=== PATIENT | female | born 1940 | race African-American/Black ===

== ENCOUNTER 2019-05-02 08:59 | Emergency (ER) | payer OTHER ==
[~2019-05-02] VITALS: Ht 154.9 cm; Wt 57.6 kg
[2019-05-02] MEDS ORDERED: CLONAZEPAM2 M1 PO (09:16)
[2019-05-02] MEDS ORDERED: VASOTEC10 MG PO (09:16)
== END 2019-05-02 13:54 | disposition home or self-care (01) ==
LOC: ER 08:59
DX: R63.0 Anorexia (principal)

== ENCOUNTER 2022-09-28 07:43 | Outpatient (CLI) | payer OTHER ==
[~2022-09-28 07:43] MED LIST: CLONAZEPAM2 M1 PO; VASOTEC10 MG PO
== END 2022-09-28 07:51 | disposition home or self-care (01) ==
LOC: TOM 07:43
PROVIDERS: ATTEND Internal Medicine Hematology & Oncology
DX: K59.00 Constipation, unspecified (principal); R97.0 Elevated carcinoembryonic antigen [CEA]; Z80.0 Family history of malignant neoplasm of digestive organs

== ENCOUNTER 2023-12-03 10:57 | Emergency (ER) | payer OTHER ==
[~2023-12-03] VITALS: Ht 154.9 cm; Wt 53.5 kg
[~2023-12-03 10:57] MED LIST changes: +ARICEPT5 MG; +B12 ACTIVE1000 MCG PO; +CLONAZEPAM2 MG PO; +CRESTOR5 MG PO; +LIPITOR20 MG; +NABUMETONE500 MG PO; +ORPH100T PO; +OSEL75CA PO; +PERCOCET 5/3251 TAB PO; +SYNTHROID100 MCG PO; +TUSSI PRES-B L120 M1 PO; +VASOTEC10 MG NGT; +ZANTAC15 MG/ML PO; +[UNRECOGNIZED DRUG - OTHER]
[2023-12-03] MEDS ORDERED: KETOROLAC TROMETHAMINE 15 MG VIAL IM STA (13:07)
[2023-12-03] MEDS ORDERED: TRAMADOL HCL 50 MG TABLET PO STA (13:07)
== END 2023-12-03 17:58 | disposition home or self-care (01) ==
LOC: ER 10:57
DX: S62.102A Fracture of unspecified carpal bone, left wrist, initial encounter for closed fracture (principal); W19.XXXA Unspecified fall, initial encounter; Y93.89 Activity, other specified; Y92.098 Other place in other non-institutional residence as the place of occurrence of the external cause; Y99.8 Other external cause status; M25.532 Pain in left wrist; Z88.6 Allergy status to analgesic agent
CPT/HCPCS: 29125; 73100; 96372; 99283; J1885

== ENCOUNTER → 2023-12-04 11:32 | Outpatient (CLI) | payer OTHER ==
[2023-12-04 12:22] LABS: HEMATOCRIT 34.5 % (36.0-45.00); HEMOGLOBIN 11.2 g/dL (12.0-15.00); MEAN CORPUSCULAR HEMOGLOBIN 28.6 pg (27.00-32.0); MEAN CORPUSCULAR HGB CONC 32.5 g/dl (32.0-36.0); PLATELET COUNT 298 K/uL (150-450); RED BLOOD COUNT 3.92 M/uL (4.00-6.00); RED CELL DISTRIBUTION WIDTH 13.3 % (11.5-14.5)
[2023-12-04 12:32] LABS: URINE APPEARANCE Clear; URINE BILIRRUBIN Negative (NEGATIVE); URINE BLOOD Moderate; URINE COLOR Yellow; URINE GLUCOSE Negative (NEGATIVE); URINE KETONE Negative (NEGATIVE); URINE LEUKOCYTE Negative; URINE NITRATE Negative; URINE PROTEIN Negative (NEGATIVE); URINE UROBILINOGEN 0.2 E.U./dl
[2023-12-04 12:33] LABS: URINE BACTERIA 7.5 uL (0.0-1933); URINE EPITHELIAL CELLS 3.7 uL (0.0-38.8); URINE RBC 105.1 uL (0.0-20.8); URINE WBC 4.4 uL (0.0-23.2)
[2023-12-04 12:55] LABS: INR 1.02; PROTHROMBIN TIME 11.1 SECONDS (9.0-11.5)
[2023-12-04 13:13] LABS: ALBUMIN 3.7 gm/dL (3.4-5.0); BILIRUBIN TOTAL 0.93 mg/dL (0.3-1.2); CALCIUM 9.8 mg/dL (8.5-10.1); CREATININE SERUM 0.96 mg/dL (0.55-1.02); GFR 54.98; GLOBULINA 4.2 G/DL (2.4-3.5); POTASSIUM 4.4 mEq/L (3.5-5.1); TOTAL PROTEIN 7.9 gm/dL (6.4-8.2)
== END | disposition home or self-care (01) ==
LOC: LAB 11:32
PROVIDERS: ATTEND Orthopaedic Surgery
DX: D64.9 Anemia, unspecified (principal); E88.89 Other specified metabolic disorders; D68.8 Other specified coagulation defects; N39.0 Urinary tract infection, site not specified; Z22.322 Carrier or suspected carrier of Methicillin resistant Staphylococcus aureus; I10 Essential (primary) hypertension; Z76.89 Persons encountering health services in other specified circumstances; M25.531 Pain in right wrist; M25.532 Pain in left wrist

== ENCOUNTER → 2023-12-06 06:13 | Outpatient (CLI) | payer OTHER ==
[2023-12-06 07:05] LABS: INR 1.05; PARTIAL THROMBOPLASTIN TIME 32.2 SECONDS (22.0-34.0); PROTHROMBIN TIME 11.4 SECONDS (9.0-11.5)
[2023-12-06 07:38] LABS: COL EPI 87 SECONDS (82-175)
== END | disposition home or self-care (01) ==
LOC: LAB 06:13
PROVIDERS: ATTEND Orthopaedic Surgery
DX: D68.8 Other specified coagulation defects (principal)

== ENCOUNTER 2024-01-10 08:43 | Outpatient (CLI) | payer OTHER | END 2024-01-10 08:47 | disposition home or self-care (01) | LOC: RAD 08:43 | PROVIDERS: ATTEND Orthopaedic Surgery | DX: S52.572D Other intraarticular fracture of lower end of left radius, subsequent encounter for closed fracture with routine healing (principal); M25.532 Pain in left wrist ==

== ENCOUNTER 2024-04-30 07:05 | Outpatient (CLI) | payer OTHER | END 2024-04-30 07:06 | disposition home or self-care (01) | LOC: RAD 07:05 | PROVIDERS: ATTEND Orthopaedic Surgery | DX: S52.572D Other intraarticular fracture of lower end of left radius, subsequent encounter for closed fracture with routine healing (principal); X58.XXXD Exposure to other specified factors, subsequent encounter ==

== ENCOUNTER 2024-08-04 06:45 | Outpatient (CLI) | payer OTHER ==
[2024-08-04 07:45] LABS: BASO % 0.8 % (0.1-1.2); EOS # 0.16 (0.04-0.54); EOS % 2.5 % (0.7-7.0); HEMATOCRIT 38.7 % (34.1-44.9); HEMOGLOBIN 12.1 g/dL (11.2-15.7); LYMPH # 2.02 (1.18-3.74); MEAN CORPUSCULAR HEMOGLOBIN 27.4 pg (25.6-32.2); MONO # 0.76 (0.24-0.82); MONO % 11.7 % (4.7-12.5); NEUT # 3.52 (1.56-6.13); NEUT % 53.8 % (34.0-71.1); PLATELET COUNT 282 K/uL (163-369); RED BLOOD COUNT 4.42 M/uL (3.93-5.22)
[2024-08-04 07:48] LABS: PH,URINE 5.5 (5.0-8.0); URINE APPEARANCE Clear; URINE BILIRRUBIN Negative (NEGATIVE); URINE BLOOD Moderate; URINE COLOR Yellow; URINE GLUCOSE Negative (NEGATIVE); URINE KETONE Negative (NEGATIVE); URINE LEUKOCYTE Negative; URINE NITRATE Negative; URINE PROTEIN Negative (NEGATIVE); URINE UROBILINOGEN 0.2 E.U./dl
[2024-08-04 07:49] LABS: URINE BACTERIA 17.1 uL (0.0-1933); URINE EPITHELIAL CELLS 5.5 uL (0.0-38.8); URINE RBC 71.4 uL (0.0-20.8); URINE WBC 9.4 uL (0.0-23.2)
[2024-08-04 07:50] LABS: URINE CAST 0.29 uL (0.0-1.40)
[2024-08-04 08:03] LABS: INR 1.01; PARTIAL THROMBOPLASTIN TIME 30.1 SECONDS (22.0-34.0)
[2024-08-04 08:14] LABS: ALBUMIN 3.5 gm/dL (3.4-5.0); BILIRUBIN TOTAL 0.69 mg/dL (0.3-1.2); CALCIUM 9.4 mg/dL (8.5-10.1); CREATININE SERUM 0.86 mg/dL (0.55-1.02); GFR 62.27; GLOBULINA 4.2 G/DL (2.4-3.5); POTASSIUM 4.22 mEq/L (3.5-5.1); TOTAL PROTEIN 7.7 gm/dL (6.4-8.2)
[2024-08-04 08:28] LABS: COL EPI 95 SECONDS (82-175)
== END 2024-08-04 06:47 | disposition home or self-care (01) ==
LOC: RAD 06:45
PROVIDERS: ATTEND Orthopaedic Surgery
DX: D64.9 Anemia, unspecified (principal); E88.9 Metabolic disorder, unspecified; D68.8 Other specified coagulation defects; N39.0 Urinary tract infection, site not specified; Z22.322 Carrier or suspected carrier of Methicillin resistant Staphylococcus aureus; E11.8 Type 2 diabetes mellitus with unspecified complications; Z76.89 Persons encountering health services in other specified circumstances

== ENCOUNTER 2024-08-21 07:03 | Outpatient (CLI) | payer OTHER | END 2024-08-21 07:05 | disposition home or self-care (01) | LOC: RAD 07:03 | PROVIDERS: ATTEND Orthopaedic Surgery | DX: T84.84XA Pain due to internal orthopedic prosthetic devices, implants and grafts, initial encounter (principal) ==